=== PATIENT | female | born 1995 ===

== ENCOUNTER 2021-12-06 17:38 | Emergency (ER) | payer OTHER, SELFPAY ==
[~2021-12-06] VITALS: Ht 152.4 cm; Wt 96.4 kg
[2021-12-06 17:39] VITALS: BP 133/89
[2021-12-06] MEDS ORDERED: MULTTAB20 PO (17:51)
== END 2021-12-07 03:16 | disposition admitted as inpatient to this hospital (09) ==
LOC: M ED 17:38
DX: Z53.8 Procedure and treatment not carried out for other reasons (principal)

== ENCOUNTER 2021-12-06 19:49 | Outpatient (CLI) ==
[~2021-12-06] VITALS: Ht 152.4 cm; Wt 97.7 kg
[~2021-12-06 19:49] MED LIST: MULTTAB20 PO
== END 2021-12-06 20:18 | disposition home or self-care (01) ==
LOC: M LDO 19:49
PROVIDERS: ATTEND Obstetrics & Gynecology
DX: O36.8120 Decreased fetal movements, second trimester, not applicable or unspecified (principal); Z3A.21 21 weeks gestation of pregnancy
CPT/HCPCS: 59025; G0463